=== PATIENT | female | born 1990 | race Caucasian/White ===

== ENCOUNTER 2017-02-26 09:38 | Emergency (ER) | payer BC, OTHER ==
[~2017-02-26] VITALS: Ht 157.5 cm; Wt 55.8 kg
[~2017-02-26 09:38] MED LIST: IBUPROFEN600 MG PO; NKM; TRAMADOL HCL50 MG ORAL
[2017-02-26 10:04] VITALS: BP 118/75
[2017-02-26] MEDS ORDERED: PREDNISONE20 MG ORAL (10:31)
[2017-02-26 10:39] VITALS: BP 118/75
--- NOTE | 2017-02-26 12:30 | Emergency Room Report ---
History of Present Illness General Chief Complaint: Skin Rash/Abscess Source: Patient Present Illness HPI 26-year-old female no significant past medical history presenting to rash on arms back chest for 2 days. Very itchy. Denies fever chills nausea vomiting diarrhea no swelling shortness of breath. No new detergents, new pets, no food allergies noted patient no new medication Allergies: Coded Allergies: No Known Allergies (Unverified , 12/28/12) Patient History Past Medical History: see triage record Past Surgical History: none Pertinent Family History: none Last Menstrual Period: 02/21/17 Reviewed Nursing Documentation: PMH: Agreed, PSxH: Agreed Nursing Documentation-PMH Past Medical History: No Stated History Review of Systems All Other Systems: negative except mentioned in HPI Physical Exam Vital Signs Date Time Temp Pulse Resp B/P (MAP) Pulse Ox O2 Delivery O2 Flow Rate FiO2 02/26/17 09:56 98.2 70 18 118/75 100 Room Air Sp02 EP Interpretation: reviewed, normal General Appearance: alert, GCS 15, non-toxic, mild distress Head: normocephalic, atraumatic Eyes: bilateral eye normal inspection, bilateral eye PERRL, bilateral eye EOMI ENT: normal ENT inspection, normal pharynx, no angioedema, normal voice, moist mucus membranes Neck: normal inspection, full range of motion, supple Respiratory: normal inspection, lungs clear, normal breath sounds, no respiratory distress, no retraction, no wheezing, speaking full sentences, chest symmetrical Cardiovascular #1: normal inspection, regular rate, rhythm, no edema, normal capillary refill Cardiovascular #2: 2+ radial (R), 2+ radial (L) Gastrointestinal: normal inspection, non tender, soft, non-distended, no guarding Musculoskeletal: normal inspection, back normal, normal range of motion, non- tender Neurologic: normal inspection, alert, oriented x3, responsive, motor strength/ tone normal, sensory intact, normal gait, speech normal Psychiatric: normal inspection, judgement/insight normal, memory normal Skin: warm/dry, well hydrated, normal turgor, other - Diffuse erythematous blanching urticarial rash on arms chest back, multiple excoriation harrison from scratching no purulent drainage no open wounds Medical Decision Making Diagnostic Impression: Primary Impression: Rash due to allergy ER Course 26-year-old female with rash Appears to be in urticaria/allergic reaction Plan: benadryl, prednisone ER course: No respiratory symptoms or angioedema. Disposition: Patient is to be discharged to home with prescription of prednisone Strict return precautions to the ED discussed with patient including worsening/ persistent symptoms, throat swelling, or shortness of breath, which may indicate severe illness. Patient verbalized understanding. Patient is to follow up with their primary care doctor within 5 days. Patient agrees with plan. Please note that this Emergency Department Report was dictated using [employer] packer technology software, occasionally this can lead to erroneous entry secondary to interpretation by the dictation equipment. Last Vital Signs Date Time Temp Pulse Resp B/P (MAP) Pulse Ox O2 Delivery O2 Flow Rate FiO2 02/26/17 10:39 98.2 72 18 118/75 100 Room Air Disposition: HOME, SELF-CARE Condition: Stable Scripts Prednisone* (PREDNISONE*) 20 Mg Tablet 40 MG ORAL DAILY for 4 Days, #10 TAB 0 Refills Prov: Lyndsey Clark M.D. 02/26/17 Patient Instructions: Rash Additional Instructions: Please follow up with your primary care doctor within 3 days. Please take your prescription medication as directed. Please come back to the emergency room if you are having severe/worsening rash, headache, throat swelling, shortness of breath, or intractable nausea or vomiting Lyndsey Clark M.D. Feb 26, 2017 12:30
== END 2017-02-26 10:40 | disposition home or self-care (01) ==
LOC: EMR 10:19
DX: T78.40XA Allergy, unspecified, initial encounter (principal); X58.XXXA Exposure to other specified factors, initial encounter; R21 Rash and other nonspecific skin eruption
CPT/HCPCS: 99283